=== PATIENT | male | born 1950 | race Caucasian/White ===

== ENCOUNTER 2020-06-07 12:08 | Day surgery (SDC) | payer MEDICARE, OTHER ==
[~2020-06-07] VITALS: Ht 188 cm; Wt 76.4 kg
--- NOTE | 2020-06-07 14:44 | NUR ---
06/07/20 1444 Janine Amador PT FELT LIGHTHEADED AFTER PROCEDURE, WANTED A LITTLE MORE TIME TO WAKE UP. PT RESTING QUIETLY IN BED.
== END 2020-06-07 14:49 | disposition home or self-care (01) ==
LOC: ORSCSDS 12:08
PROVIDERS: Surgery
PROC: 0DJD8ZZ Inspection of Lower Intestinal Tract, Via Natural or Artificial Opening Endoscopic (ICD-10-PCS; principal; 2020-06-07 13:45)
DX: Z12.11 Encounter for screening for malignant neoplasm of colon (principal); K57.30 Diverticulosis of large intestine without perforation or abscess without bleeding
CPT/HCPCS: J2704; J7120